=== PATIENT | female | born 1945 | race Caucasian/White ===

== ENCOUNTER 2017-09-29 11:25 | Inpatient (IN) ==
[2017-09-29] MEDS ORDERED: ALPRAZolam 0.25 MG TABLET PO PRN (11:44)
[2017-09-29] MEDS ORDERED: guaiFENesin 200 MG/10 ML UDCUP PO PRN (11:44)
[2017-09-29] MEDS ORDERED: MYLANTA/LIDO VISC 2:1 300 ML BOTTLE SWISH/SPIT PRN (11:44)
[2017-09-29] MEDS ORDERED: PROMETHAZINE INJ 25 MG in SODIUM CHLORIDE 0.9% 50 ML IV PRN (11:44)
[2017-09-29] MEDS ORDERED: ALUMINUM/MAGNES/SIMETH MAX STR 30 ML UDCUP PO PRN (11:44)
[2017-09-29] MEDS ORDERED: TEMAZEPAM 7.5 MG CAPSULE PO PRN (11:44)
[2017-09-29] MEDS ORDERED: chlorproMAZINE INJ 50 MG in SODIUM CHLORIDE 0.9% 100 ML IV PRN (11:44)
[2017-09-29] MEDS ORDERED: MAGNESIUM HYDROXIDE SUSP 30 ML UDCUP PO PRN (11:44)
[2017-09-29] MEDS ORDERED: diphenhydrAMINE CAP 25 MG CAPSULE PO PRN (11:44)
[2017-09-29] MEDS ORDERED: MYLANTA/LIDO VISC 2:1 300 ML BOTTLE SWISH/SWAL PRN (11:44)
[2017-09-29] MEDS ORDERED: ONDANSETRON 4 MG/2 ML VIAL IV PRN (11:44)
[2017-09-29] MEDS ORDERED: ACETAMINOPHEN 325 MG TABLET PO PRN (11:44)
[2017-09-29] MEDS ORDERED: BENZTROPINE 2 MG/2 ML AMP IV PRN (11:44)
[2017-09-29] MEDS ORDERED: LOPERAMIDE 2 MG CAPSULE PO PRN ×2 (11:44)
[2017-09-29] MEDS ORDERED: traMADol 50 MG TABLET PO PRN (11:44)
[2017-09-29] MEDS ORDERED: chlorproMAZINE INJ 25 MG in SODIUM CHLORIDE 0.9% 100 ML IV PRN (11:44)
[2017-09-29] MEDS ORDERED: LACTULOSE 20 GM/30 ML UDCUP PO PRN (11:44)
[2017-09-29] MEDS ORDERED: chlorproMAZINE 25 MG TABLET PO PRN (11:44)
[2017-09-29] MEDS: LIDOCAINE 5% PATCH TRANSDERM SCH (21:23)
[2017-09-29] MEDS: fentaNYL 25 MCG/HR PATCH TRANSDERM SCH (21:24)
[2017-09-29] MEDS: MIRTAZAPINE 30 MG TABLET PO SCH (21:24)
[2017-09-29] MEDS: GABAPENTIN 100 MG CAPSULE PO SCH (21:28)
[2017-09-29] MEDS: NYSTATIN CREAM 15 GM TUBE TOP SCH (21:29)
[2017-09-29] MEDS: POTASSIUM CHLORIDE 10 MEQ TABLET PO SCH (21:29)
[2017-09-29] MEDS: SERTRALINE 25 MG TABLET PO SCH (21:29)
[2017-09-29] MEDS: LATANOPROST 0.005% OPH SOLN 2.5 ML BOTTLE BOTH EYES SCH (21:30)
[2017-09-29] MEDS: SODIUM CHLORIDE 0.45% 1,000 ML IV SCH (21:34)
[2017-09-30 06:05] LABS: Albumin 2.9 G/DL (3.4-5.0); Bilirubin,Total 0.8 MG/DL (0.2-1.0); Osmolality,Calculated 299.1 MOS/KG (273-304); Potassium 3.7 MMOL/L (3.5-5.1); Total Protein 5.6 G/DL (6.4-8.3)
[2017-09-30 06:42] LABS: Basophils % 0.4 % (0.0-0.8); Eosinophils % 0.3 % (0.00-10.9); Hematocrit 37.9 VOL% (35.7-47.0); Hemoglobin 11.2 GM/DL (12.0-16.0); Immature Granulocytes % 0.5 %; Immature Granulocytes Absolute 0.05 #; Lymphocytes # 2.1 10*3/uL (1.4-4.0); Lymphocytes % 22.8 % (21.3-54.2); Mean Corpuscular HGB Conc 29.6 GM/DL (32-36); Mean Corpuscular Hemoglobin 29 PG (27-34); Mean Corpuscular Volume 97.7 FL (87-102); Mean Platelet Volume 10.5 FL (9.6-12.0); Monocytes % 10.8 % (1.7-12.7); Neutrophils # 6.1 10*3/uL (1.4-7.4); Neutrophils % 65.2 % (38.7-73.9); Platelet Count 279 T/CUMM (130-400); Red Blood Count 3.88 MC/CUMM (3.8-5.5); Red Cell Distribution Width 16.3 % (9.3-17.3); White Blood Count 9.4 T/CUMM (4-12)
[2017-09-30] MEDS ORDERED: ASPIRIN 325 MG TABLET PO SCH (09:00)
[2017-09-30] MEDS: TIMOLOL 0.25% OPH SOLN 5 ML BOTTLE BOTH EYES SCH (09:56)
[2017-09-30] MEDS: POTASSIUM CHLORIDE 10 MEQ TABLET PO SCH ×2 (09:57→20:20)
[2017-09-30] MEDS: PYRIDOXINE 100 MG TABLET PO SCH (09:57)
[2017-09-30] MEDS: ASCORBIC ACID 500 MG TABLET PO SCH (09:57)
[2017-09-30] MEDS: LEVOTHYROXINE 125 MCG TABLET PO SCH (09:58)
[2017-09-30] MEDS: GABAPENTIN 100 MG CAPSULE PO SCH ×3 (09:59→20:20)
[2017-09-30] MEDS: CETIRIZINE 10 MG TABLET PO SCH (10:00)
[2017-09-30] MEDS: PANTOPRAZOLE 40 MG TABLET PO SCH (10:00)
[2017-09-30] MEDS: CELECOXIB 200 MG CAPSULE PO SCH (10:00)
[2017-09-30] MEDS: ASPIRIN EC 81 MG TABLET PO SCH (10:00)
[2017-09-30] MEDS: FUROSEMIDE 40 MG TABLET PO SCH (10:00)
[2017-09-30] MEDS: NYSTATIN CREAM 15 GM TUBE TOP SCH ×2 (13:00→20:20)
[2017-09-30] MEDS: MIRTAZAPINE 30 MG TABLET PO SCH (20:19)
[2017-09-30] MEDS: LIDOCAINE 5% PATCH TRANSDERM SCH (20:20)
[2017-09-30] MEDS: SERTRALINE 25 MG TABLET PO SCH (20:20)
[2017-09-30] MEDS: LATANOPROST 0.005% OPH SOLN 2.5 ML BOTTLE BOTH EYES SCH (20:21)
[2017-10-01] MEDS: SODIUM CHLORIDE 0.45% 1,000 ML IV SCH (02:58)
[2017-10-01] MEDS: TIMOLOL 0.25% OPH SOLN 5 ML BOTTLE BOTH EYES SCH (06:30)
[2017-10-01] MEDS: LEVOTHYROXINE 125 MCG TABLET PO SCH (06:39)
[2017-10-01 07:51] LABS: Calcium 9.1 MG/DL (8.5-10.1); Osmolality,Calculated 290.4 MOS/KG (273-304); Potassium 3.9 MMOL/L (3.5-5.1)
[2017-10-01] MEDS ORDERED: DEXTROSE 50% 25 GM/50 ML VIAL IV ONE (08:02)
[2017-10-01] MEDS ORDERED: DEXTROSE 50% 25 GM/50 ML VIAL IV PRN (08:12)
[2017-10-01] MEDS ORDERED: FUROSEMIDE 20 MG/2 ML VIAL IV ONE (08:42)
[2017-10-01] MEDS: POTASSIUM CHLORIDE 10 MEQ TABLET PO SCH ×2 (09:00→21:50)
[2017-10-01] MEDS: ASPIRIN EC 81 MG TABLET PO SCH (09:00)
[2017-10-01] MEDS: PANTOPRAZOLE 40 MG TABLET PO SCH (09:00)
[2017-10-01] MEDS: FUROSEMIDE 40 MG TABLET PO SCH (09:00)
[2017-10-01] MEDS: NYSTATIN CREAM 15 GM TUBE TOP SCH ×2 (09:00→21:57)
[2017-10-01] MEDS: PYRIDOXINE 100 MG TABLET PO SCH (09:00)
[2017-10-01] MEDS: GABAPENTIN 100 MG CAPSULE PO SCH ×3 (09:00→21:50)
[2017-10-01] MEDS: CETIRIZINE 10 MG TABLET PO SCH (09:00)
[2017-10-01] MEDS: CELECOXIB 200 MG CAPSULE PO SCH (09:00)
[2017-10-01] MEDS: ASCORBIC ACID 500 MG TABLET PO SCH (09:00)
[2017-10-01] MEDS: DEXTROSE 5% NACL 0.45% 1,000 ML IV SCH (09:59)
[2017-10-01] MEDS ORDERED: LIDOCAINE 2% 5 ML VIAL ONE (10:00)
[2017-10-01] MEDS ORDERED: PROPOFOL 200 MG/20 ML VIAL IV ONE (10:00)
[2017-10-01] MEDS ORDERED: FLUCONAZOLE 200 MG TABLET PO ONE (13:21)
[2017-10-01] MEDS: MIRTAZAPINE 30 MG TABLET PO SCH (21:50)
[2017-10-01] MEDS: SERTRALINE 25 MG TABLET PO SCH (21:51)
[2017-10-01] MEDS: LIDOCAINE 5% PATCH TRANSDERM SCH (21:54)
[2017-10-01] MEDS: LATANOPROST 0.005% OPH SOLN 2.5 ML BOTTLE BOTH EYES SCH (21:56)
[2017-10-02 04:45] LABS: Basophils % 0.4 % (0.0-0.8); Eosinophils # 0.1 10*3/uL (0.0-0.87); Eosinophils % 0.6 % (0.00-10.9); Hematocrit 34.6 VOL% (35.7-47.0); Hemoglobin 10.7 GM/DL (12.0-16.0); Immature Granulocytes % 0.7 %; Immature Granulocytes Absolute 0.07 #; Lymphocytes # 1.8 10*3/uL (1.4-4.0); Lymphocytes % 17.4 % (21.3-54.2); Mean Corpuscular HGB Conc 30.9 GM/DL (32-36); Mean Corpuscular Hemoglobin 30 PG (27-34); Mean Corpuscular Volume 95.3 FL (87-102); Mean Platelet Volume 10.3 FL (9.6-12.0); Monocytes # 1.1 10*3/uL (0.11-0.8); NRBC # 0.03 10*3/uL; Neutrophils % 69.9 % (38.7-73.9); Platelet Count 251 T/CUMM (130-400); Red Blood Count 3.63 MC/CUMM (3.8-5.5); Red Cell Distribution Width 16.4 % (9.3-17.3)
[2017-10-02 05:37] LABS: Albumin 2.6 G/DL (3.4-5.0); Bilirubin,Total 0.9 MG/DL (0.2-1.0); Calcium 8.1 MG/DL (8.5-10.1); Osmolality,Calculated 293.4 MOS/KG (273-304); Total Protein 5.1 G/DL (6.4-8.3)
[2017-10-02] MEDS: LEVOTHYROXINE 125 MCG TABLET PO SCH (06:24)
[2017-10-02] MEDS: PYRIDOXINE 100 MG TABLET PO SCH (09:52)
[2017-10-02] MEDS: ASPIRIN EC 81 MG TABLET PO SCH (09:53)
[2017-10-02] MEDS: GABAPENTIN 100 MG CAPSULE PO SCH ×3 (09:53→20:56)
[2017-10-02] MEDS: POTASSIUM CHLORIDE 10 MEQ TABLET PO SCH ×2 (09:54→20:56)
[2017-10-02] MEDS: FLUCONAZOLE 100 MG TABLET PO SCH (09:54)
[2017-10-02] MEDS: CELECOXIB 200 MG CAPSULE PO SCH (09:54)
[2017-10-02] MEDS: CETIRIZINE 10 MG TABLET PO SCH (09:54)
[2017-10-02] MEDS: ASCORBIC ACID 500 MG TABLET PO SCH (09:54)
[2017-10-02] MEDS: FUROSEMIDE 40 MG TABLET PO SCH (09:54)
[2017-10-02] MEDS: PANTOPRAZOLE 40 MG TABLET PO SCH (09:54)
[2017-10-02] MEDS: TIMOLOL 0.25% OPH SOLN 5 ML BOTTLE BOTH EYES SCH (09:58)
[2017-10-02] MEDS: NYSTATIN CREAM 15 GM TUBE TOP SCH ×2 (14:51→21:04)
[2017-10-02] MEDS: DEXTROSE 5% NACL 0.45% 1,000 ML IV SCH (18:48)
[2017-10-02] MEDS: fentaNYL 25 MCG/HR PATCH TRANSDERM SCH (20:55)
[2017-10-02] MEDS: LIDOCAINE 5% PATCH TRANSDERM SCH (20:56)
[2017-10-02] MEDS: MIRTAZAPINE 30 MG TABLET PO SCH (20:56)
[2017-10-02] MEDS: SERTRALINE 25 MG TABLET PO SCH (20:57)
[2017-10-02] MEDS: LATANOPROST 0.005% OPH SOLN 2.5 ML BOTTLE BOTH EYES SCH (21:04)
[2017-10-03 06:02] LABS: Calcium 8.5 MG/DL (8.5-10.1); Osmolality,Calculated 294.4 MOS/KG (273-304)
[2017-10-03] MEDS: LEVOTHYROXINE 125 MCG TABLET PO SCH (06:30)
[2017-10-03] MEDS: PYRIDOXINE 100 MG TABLET PO SCH (08:49)
[2017-10-03] MEDS: GABAPENTIN 100 MG CAPSULE PO SCH ×3 (08:50→21:13)
[2017-10-03] MEDS: CELECOXIB 200 MG CAPSULE PO SCH (08:50)
[2017-10-03] MEDS: ASCORBIC ACID 500 MG TABLET PO SCH (08:50)
[2017-10-03] MEDS: CETIRIZINE 10 MG TABLET PO SCH (08:50)
[2017-10-03] MEDS: ASPIRIN EC 81 MG TABLET PO SCH (08:50)
[2017-10-03] MEDS: FUROSEMIDE 40 MG TABLET PO SCH (08:51)
[2017-10-03] MEDS: POTASSIUM CHLORIDE 10 MEQ TABLET PO SCH ×2 (08:51→21:13)
[2017-10-03] MEDS: PANTOPRAZOLE 40 MG TABLET PO SCH (08:51)
[2017-10-03] MEDS: FLUCONAZOLE 100 MG TABLET PO SCH (08:51)
[2017-10-03] MEDS: NYSTATIN CREAM 15 GM TUBE TOP SCH ×2 (08:59→21:14)
[2017-10-03] MEDS: TIMOLOL 0.25% OPH SOLN 5 ML BOTTLE BOTH EYES SCH (08:59)
[2017-10-03] MEDS: DEXTROSE 5% NACL 0.45% 1,000 ML IV SCH (15:07)
[2017-10-03] MEDS: MIRTAZAPINE 30 MG TABLET PO SCH (21:13)
[2017-10-03] MEDS: SUCRALFATE 1 GM/10 ML UDCUP PO SCH (21:14)
[2017-10-03] MEDS: LIDOCAINE 5% PATCH TRANSDERM SCH (21:14)
[2017-10-03] MEDS: SERTRALINE 25 MG TABLET PO SCH (21:15)
[2017-10-03] MEDS: LATANOPROST 0.005% OPH SOLN 2.5 ML BOTTLE BOTH EYES SCH (21:18)
[2017-10-04 05:32] LABS: Calcium 8.5 MG/DL (8.5-10.1); Osmolality,Calculated 291.7 MOS/KG (273-304); Potassium 4.3 MMOL/L (3.5-5.1)
[2017-10-04] MEDS: LEVOTHYROXINE 125 MCG TABLET PO SCH (06:43)
[2017-10-04] MEDS ORDERED: FUROSEMIDE 40 MG/4 ML VIAL IV ONE (08:15)
[2017-10-04] MEDS: ASPIRIN EC 81 MG TABLET PO SCH (09:39)
[2017-10-04] MEDS: GABAPENTIN 100 MG CAPSULE PO SCH ×3 (09:39→20:29)
[2017-10-04] MEDS: POTASSIUM CHLORIDE 10 MEQ TABLET PO SCH ×2 (09:40→20:30)
[2017-10-04] MEDS: FLUCONAZOLE 100 MG TABLET PO SCH (09:41)
[2017-10-04] MEDS: FUROSEMIDE 40 MG TABLET PO SCH (09:41)
[2017-10-04] MEDS: TIMOLOL 0.25% OPH SOLN 5 ML BOTTLE BOTH EYES SCH (09:44)
[2017-10-04] MEDS: CETIRIZINE 10 MG TABLET PO SCH (09:45)
[2017-10-04] MEDS: PYRIDOXINE 100 MG TABLET PO SCH (09:45)
[2017-10-04] MEDS: PANTOPRAZOLE 40 MG TABLET PO SCH (09:45)
[2017-10-04] MEDS: CELECOXIB 200 MG CAPSULE PO SCH (09:45)
[2017-10-04] MEDS: ASCORBIC ACID 500 MG TABLET PO SCH (09:45)
[2017-10-04] MEDS: NYSTATIN CREAM 15 GM TUBE TOP SCH ×2 (09:46→20:30)
[2017-10-04] MEDS: DEXTROSE 5% NACL 0.45% 1,000 ML IV SCH (11:28)
[2017-10-04] MEDS: LIDOCAINE 5% PATCH TRANSDERM SCH (20:28)
[2017-10-04] MEDS: SUCRALFATE 1 GM/10 ML UDCUP PO SCH (20:29)
[2017-10-04] MEDS: SERTRALINE 25 MG TABLET PO SCH (20:29)
[2017-10-04] MEDS: MIRTAZAPINE 30 MG TABLET PO SCH (20:29)
[2017-10-04] MEDS: LATANOPROST 0.005% OPH SOLN 2.5 ML BOTTLE BOTH EYES SCH (20:31)
[2017-10-05] MEDS: LEVOTHYROXINE 125 MCG TABLET PO SCH (06:25)
[2017-10-05] MEDS ORDERED: FUROSEMIDE 40 MG/4 ML VIAL IV ONE (08:00)
[2017-10-05] MEDS ORDERED: methylPREDNISolone SOD SUC 125 MG/2 ML VIAL IV ONE (08:03)
[2017-10-05] MEDS: PYRIDOXINE 100 MG TABLET PO SCH (08:10)
[2017-10-05] MEDS: GABAPENTIN 100 MG CAPSULE PO SCH ×3 (08:10→21:17)
[2017-10-05] MEDS: CELECOXIB 200 MG CAPSULE PO SCH (08:10)
[2017-10-05] MEDS: FUROSEMIDE 40 MG TABLET PO SCH (08:10)
[2017-10-05] MEDS: PANTOPRAZOLE 40 MG TABLET PO SCH (08:10)
[2017-10-05] MEDS: ASPIRIN EC 81 MG TABLET PO SCH (08:10)
[2017-10-05] MEDS: ASCORBIC ACID 500 MG TABLET PO SCH (08:11)
[2017-10-05] MEDS: FLUCONAZOLE 100 MG TABLET PO SCH (08:11)
[2017-10-05] MEDS: TIMOLOL 0.25% OPH SOLN 5 ML BOTTLE BOTH EYES SCH (08:12)
[2017-10-05] MEDS: CETIRIZINE 10 MG TABLET PO SCH (09:48)
[2017-10-05] MEDS: guaiFENesin 200 MG/10 ML UDCUP PO SCH ×2 (09:49→21:10)
[2017-10-05] MEDS: POTASSIUM CHLORIDE 10 MEQ TABLET PO SCH ×2 (10:04→21:18)
[2017-10-05] MEDS: NYSTATIN CREAM 15 GM TUBE TOP SCH ×2 (10:06→21:19)
[2017-10-05] MEDS: ALBUTEROL/IPRATROPIUM 3 ML NEB RESP TX SCH ×2 (14:20→19:38)
[2017-10-05] MEDS: fentaNYL 25 MCG/HR PATCH TRANSDERM SCH (21:16)
[2017-10-05] MEDS: SUCRALFATE 1 GM/10 ML UDCUP PO SCH (21:16)
[2017-10-05] MEDS: MIRTAZAPINE 30 MG TABLET PO SCH (21:17)
[2017-10-05] MEDS: SERTRALINE 25 MG TABLET PO SCH (21:18)
[2017-10-05] MEDS: LIDOCAINE 5% PATCH TRANSDERM SCH (21:18)
[2017-10-05] MEDS: LATANOPROST 0.005% OPH SOLN 2.5 ML BOTTLE BOTH EYES SCH (21:18)
[2017-10-06] MEDS: ALBUTEROL/IPRATROPIUM 3 ML NEB RESP TX SCH ×2 (00:47→08:35)
[2017-10-06 07:11] LABS: Basophils % 0.1 % (0.0-0.8); Hematocrit 38.5 VOL% (35.7-47.0); Hemoglobin 11.7 GM/DL (12.0-16.0); Immature Granulocytes Absolute 0.07 #; Lymphocytes # 0.7 10*3/uL (1.4-4.0); Lymphocytes % 10.6 % (21.3-54.2); Mean Corpuscular HGB Conc 30.4 GM/DL (32-36); Mean Corpuscular Hemoglobin 30 PG (27-34); Mean Corpuscular Volume 97.7 FL (87-102); Mean Platelet Volume 10.3 FL (9.6-12.0); Monocytes # 0.8 10*3/uL (0.11-0.8); Monocytes % 11.5 % (1.7-12.7); Neutrophils # 5.3 10*3/uL (1.4-7.4); Neutrophils % 76.8 % (38.7-73.9); Platelet Count 308 T/CUMM (130-400); Red Blood Count 3.94 MC/CUMM (3.8-5.5); Red Cell Distribution Width 17.9 % (9.3-17.3); White Blood Count 6.9 T/CUMM (4-12)
[2017-10-06 07:21] LABS: Calcium 8.8 MG/DL (8.5-10.1); Osmolality,Calculated 295.4 MOS/KG (273-304); Potassium 4.6 MMOL/L (3.5-5.1)
[2017-10-06] MEDS: guaiFENesin 200 MG/10 ML UDCUP PO SCH (08:14)
[2017-10-06] MEDS: ASPIRIN EC 81 MG TABLET PO SCH (08:15)
[2017-10-06] MEDS: LEVOTHYROXINE 125 MCG TABLET PO SCH (08:15)
[2017-10-06] MEDS: CELECOXIB 200 MG CAPSULE PO SCH (08:15)
[2017-10-06] MEDS: PYRIDOXINE 100 MG TABLET PO SCH (08:15)
[2017-10-06] MEDS: POTASSIUM CHLORIDE 10 MEQ TABLET PO SCH (08:16)
[2017-10-06] MEDS: GABAPENTIN 100 MG CAPSULE PO SCH (08:16)
[2017-10-06] MEDS: FLUCONAZOLE 100 MG TABLET PO SCH (08:16)
[2017-10-06] MEDS: ASCORBIC ACID 500 MG TABLET PO SCH (08:16)
[2017-10-06] MEDS ORDERED: methylPREDNISolone SOD SUC 125 MG/2 ML VIAL IV ONE (08:16)
[2017-10-06] MEDS: CETIRIZINE 10 MG TABLET PO SCH (08:16)
[2017-10-06] MEDS: FUROSEMIDE 40 MG TABLET PO SCH (08:17)
[2017-10-06] MEDS: PANTOPRAZOLE 40 MG TABLET PO SCH (08:17)
[2017-10-06] MEDS: TIMOLOL 0.25% OPH SOLN 5 ML BOTTLE BOTH EYES SCH (08:25)
[2017-10-06] MEDS: NYSTATIN CREAM 15 GM TUBE TOP SCH (08:34)
[2017-10-06 10:57] VITALS: BP 140/64
[2017-10-06] MEDS ORDERED: HEPARIN LOCK FLUSH 500 UNIT/5 ML SYRINGE IV ONE (11:48)
== END 2017-10-06 14:11 | disposition swing bed (61) | DRG 369 ==
LOC: N.4E 16:39
PROVIDERS: ADMIT Specialist; ATTEND Specialist